=== PATIENT | male | born 1965 | race Caucasian/White ===

== ENCOUNTER 2023-07-25 21:58 | Emergency (ER) | payer MEDICARE, MEDICAID ==
[~2023-07-25] VITALS: Ht 185.4 cm; Wt 73.6 kg
[2023-07-25 22:40] LABS: HEMATOCRIT 39.3 % (42.0-52.0); HEMOGLOBIN 12.6 g/dl (13.5-17.5); MEAN CORPUSCULAR HEMOGLOBIN 30.5 pg (27.0-33.0); MEAN CORPUSCULAR HGB CONC 32.1 g/dl (32.0-36.5); MEAN CORPUSCULAR VOLUME 95.2 fl (80.0-96.0); PLATELET COUNT, AUTOMATED 246 10^3/uL (150-450); RED BLOOD COUNT 4.13 10^6/uL (4.30-6.10); WHITE BLOOD COUNT 5.8 10^3/uL (4.0-10.0)
[2023-07-25 23:05] LABS: ETHYL ALCOHOL (ETHANOL) 0.036 % (0.000-0.010)
[2023-07-25 23:07] LABS: ACETAMINOPHEN LEVEL < 2.0 UG/ML (10.0-20.0); ALBUMIN 3.1 G/DL (3.2-5.2); ALKALINE PHOSPHATASE 57 U/L (46-116); ALT/SGPT 27 U/L (7.0-40); AST/SGOT 35 U/L (<34); BILIRUBIN,DIRECT 0.1 MG/DL (<0.4); BILIRUBIN,TOTAL 0.2 MG/DL (0.3-1.2); BLOOD UREA NITROGEN 23 MG/DL (9-23); CALCIUM LEVEL 9.1 MG/DL (8.5-10.1); CARBON DIOXIDE LEVEL 28 MMOL/L (20-31); CHLORIDE LEVEL 109 MMOL/L (98-107); CREATININE FOR GFR 1.68 MG/DL (0.70-1.30); GLOMERULAR FILTRATION RATE 45.2 (>56); GLUCOSE, FASTING 128 MG/DL (60-100); POTASSIUM SERUM 4.3 MMOL/L (3.5-5.1); SALICYLATE LEVEL < 3.0 MG/DL (<30); SODIUM LEVEL 143 MMOL/L (136-145); TOTAL PROTEIN 5.8 G/DL (5.7-8.2)
[2023-07-25 23:10] LABS: THYROID STIMULATING HORMONE 8.117 uIU/ML (0.55-4.78)
[2023-07-25 23:30] LABS: METHADONE URINE NEGATIVE (NEGATIVE); PHENCYCLIDINE URINE NEGATIVE (NEGATIVE)
[2023-07-25 23:31] LABS: AMPHETAMINES LEVEL URINE NEGATIVE (NEGATIVE); BARBITURATES URINE NEGATIVE (NEGATIVE); BENZODIAZEPINES URINE NEGATIVE (NEGATIVE); COCAINE METABOLITE URINE NEGATIVE (NEGATIVE); OPIATES URINE NEGATIVE (NEGATIVE)
[2023-07-25 23:32] LABS: CANNABINOIDS URINE POSITIVE (NEGATIVE)
[2023-07-26] MEDS ORDERED: DULO60CA35 PO
[2023-07-26] MEDS ORDERED: FENO145T7 PO
[2023-07-26] MEDS ORDERED: CYCL10TA20 PO ×2
[2023-07-26] MEDS ORDERED: BUSP10TA PO ×2
[2023-07-26] MEDS ORDERED: MIRT-88 PO
[2023-07-26] MEDS ORDERED: BUPR10TASR PO
[2023-07-26] MEDS ORDERED: TRUL0.5I SC
[2023-07-26] MEDS ORDERED: XARE20TA PO
[2023-07-26] MEDS ORDERED: MECL-86 PO
[2023-07-26] MEDS ORDERED: GABA600T4 PO
[2023-07-26] MEDS ORDERED: BUDE10.22 INH
[2023-07-26] MEDS ORDERED: PANT40TA29 PO
[2023-07-26] MEDS ORDERED: RIZA10TA58 PO
[2023-07-26] MEDS ORDERED: BYST5TAB2 PO
[2023-07-26] MEDS ORDERED: ATOR40TA75 PO
[2023-07-26] MEDS ORDERED: LOSA25TA13 PO
[2023-07-26] MEDS ORDERED: BRIN1TAB3 PO
[2023-07-26] MEDS ORDERED: HOME MED LIST COMPLETE! XX SCH (00:05)
[2023-07-26 00:27] VITALS: BP 144/87; TEMP 97.9; O2SAT 98
== END 2023-07-26 01:03 | disposition home or self-care (01) ==
LOC: M ED 21:58
DX: F43.0 Acute stress reaction (principal); R45.850 Homicidal ideations; F32.A Depression, unspecified; F20.9 Schizophrenia, unspecified; F17.200 Nicotine dependence, unspecified, uncomplicated; F12.10 Cannabis abuse, uncomplicated; F10.10 Alcohol abuse, uncomplicated; Z88.0 Allergy status to penicillin; Z88.6 Allergy status to analgesic agent; Z88.8 Allergy status to other drugs, medicaments and biological substances; Z91.040 Latex allergy status; Z91.048 Other nonmedicinal substance allergy status; Z79.02 Long term (current) use of antithrombotics/antiplatelets; Z79.891 Long term (current) use of opiate analgesic; Z79.811 Long term (current) use of aromatase inhibitors; Z79.899 Other long term (current) drug therapy